=== PATIENT | male | born 1975 | race African-American/Black ===

== ENCOUNTER 2017-12-23 16:01 | Emergency (ER) | payer OTHER ==
[~2017-12-23] VITALS: Ht 193 cm; Wt 77.3 kg
[~2017-12-23 16:01] MED LIST: CELEXA 20MG20 MG/TAB PO; FLEXERIL 1010 MG/TAB PO; TYLENOL 500MG500 MG PO; ULTRAM 50MG TAB50 MG PO
[2017-12-23 17:15] VITALS: BP 147/93; PULSE 95; TEMP 96.5
== END 2017-12-23 17:15 | disposition home or self-care (01) ==
LOC: COL.ER 16:01
DX: S00.93XA Contusion of unspecified part of head, initial encounter (principal); F41.9 Anxiety disorder, unspecified; W01.198A Fall on same level from slipping, tripping and stumbling with subsequent striking against other object, initial encounter; Y92.89 Other specified places as the place of occurrence of the external cause